=== PATIENT | female | born 1975 | race Caucasian/White ===

== ENCOUNTER 2016-10-29 06:53 | Observation (INO) | payer OTHER ==
[~2016-10-29] VITALS: Ht 162.6 cm; Wt 90.9 kg
[2016-10-29] VITALS (8 sets, daily range): BP systolic 102–127; BP diastolic 45–82; PULSE 55–71; TEMP 97.9–98.6
[2016-10-29 08:10] LABS: BASO % 0.1 % (0.0-2.0); EOS % 0.4 % (0-4.0); GRAN # 6.7 (1.4-6.5); GRAN % 81.2 % (42.2-75.2); HEMATOCRIT 39.8 % (37.0-47.0); LYMPH # 1.2 (1.2-3.4); LYMPH % 14.2 % (20.0-51.0); MEAN CELL VOLUME 85 fl (80.0-100.0); MEAN CORPUSCULAR HEMOGLOBIN 28 pg (27.0-31.0); MEAN CORPUSCULAR HGB CONC 33 g/dl (33.0-37.0); MEAN PLATELET VOLUME 9.8 fl (7.4-10.4); MONO # 0.3 (0.1-0.6); MONO % 3.9 % (1.7-9.3); PLATELET COUNT 261 K/mm3 (130-400); RED BLOOD COUNT 4.67 M/mm3 (4.10-5.30); REDCELL DISTRIBUTION WIDTH-CV 13.3 % (11.5-14.5); WHITE BLOOD COUNT 8.2 K/mm3 (4.8-10.8)
[2016-10-29 08:26] LABS: ADJUSTED CALCIUM 9.5 mg/dL (8.4-10.2); ALBUMIN 4.1 gm/dL (3.5-5.0); BILIRUBIN,TOTAL 0.5 mg/dL (0.0-1.0); CALCIUM 9.6 mg/dL (8.4-10.2); CREATININE, serum 0.61 mg/dL (0.52-1.25); POTASSIUM 4.2 mmol/L (3.4-5.0); TOTAL PROTEIN 7.2 gm/dL (6.4-8.2)
[2016-10-29 08:49] LABS: PH 7 (5-8); URINE APPEARANCE Clear; URINE BACTERIA Rare /hpf; URINE BILIRUBIN Negative (NEGATIVE); URINE BLOOD 3+ (NEGATIVE); URINE COLOR Yellow; URINE GLUCOSE Negative (NEGATIVE); URINE KETONE Negative (NEGATIVE); URINE RBC >50 /hpf; URINE UROBILINOGEN Negative (NEGATIVE)
[2016-10-29 09:48] LABS: PH 6 (5-8); SQUAMOUS EPITHELIAL 0-2 /hpf; URINE APPEARANCE Clear; URINE BACTERIA None Seen /hpf; URINE BILIRUBIN Negative (NEGATIVE); URINE BLOOD 2+ (NEGATIVE); URINE COLOR Colorless; URINE GLUCOSE Negative (NEGATIVE); URINE KETONE Negative (NEGATIVE); URINE RBC 0-2 /hpf; URINE UROBILINOGEN Negative (NEGATIVE); URINE WBC 0-2 /hpf
[2016-10-30 02:40] VITALS: BP 111/68; PULSE 54; TEMP 95.9
[2016-10-30 06:25] VITALS: BP 112/57; PULSE 64; TEMP 97.5
[2016-10-30] MEDS ORDERED: NORCO 325 MG-51 TAB PO (08:56)
== END 2016-10-30 09:00 | disposition home or self-care (01) ==
LOC: COL.ER 06:53 → SURG 12:46
PROVIDERS: Nurse Practitioner
DX: K80.10 Calculus of gallbladder with chronic cholecystitis without obstruction (principal); E66.01 Morbid (severe) obesity due to excess calories
CPT/HCPCS: G0378; J0694; J1100; J1170; J1885; J2270; J2300; J2405; J2704; J2710; J2765; J7030; J7120; Q9967

== ENCOUNTER 2021-10-29 15:45 | Outpatient (RCR) | payer BC ==
[~2021-10-29 15:45] MED LIST: NORCO 325 MG-51 TAB PO
== END 2021-11-03 13:07 | disposition home or self-care (01) ==
LOC: MKS.ESL.PT 15:45
DX: M25.562 Pain in left knee (principal)

== ENCOUNTER → 2022-10-04 | Outpatient (CLI) | payer BC ==
[~2022-10-04] MED LIST changes: +ELIQUIS 5MG PO
== END ==
LOC: COL.VAS 05:21
DX: I82.432 Acute embolism and thrombosis of left popliteal vein (principal); I82.462 Acute embolism and thrombosis of left calf muscular vein

== ENCOUNTER → 2022-12-30 | Outpatient (CLI) | payer BC | LOC: MC.RAD 09:51 | DX: Z12.31 Encounter for screening mammogram for malignant neoplasm of breast (principal) ==